=== PATIENT | male | born 1985 | race African-American/Black ===

== ENCOUNTER 2017-11-11 13:55 | Emergency (ER) | payer OTHER ==
[~2017-11-11] VITALS: Ht 175.3 cm; Wt 81.6 kg
[2017-11-11 15:35] LABS: *BILIRUBIN,URIN NEGATIVE (NEGATIVE); *BLOOD, URINE NEGATIVE (NEGATIVE); *CLARITY,URINE CLEAR (CLEAR); *COLOR,URINE YELLOW (YELLOW); *KETONES,URINE NEGATIVE (NEGATIVE); *PROTEIN,URINE TRACE (NEGATIVE); *UROBILINOGEN,URINE 0.2 E.U./dl (NORMAL); LEUKOCYTE ESTERASE ,URINE NEGATIVE (NEGATIVE); NITRITE, URINE NEGATIVE (NEGATIVE); PH,URINE 7.5 (5.0-8.0); UGLUCOSE NEGATIVE (NEGATIVE)
[2017-11-11 15:41] LABS: MUCUS,URINE MODERATE /LPF (0-FEW); WBC,URINE 0-3 /HPF (0-3)
--- NOTE | 2017-11-11 16:51 | NUR ---
DR GALVAN AT THE BEDSIDE FOR MSE.
[2017-11-11] MEDS ORDERED: CEFTRIAXONE 500 MG VIAL IM ONE (17:00)
[2017-11-11] MEDS ORDERED: DOXYCYCLINE HYCLATE 100 MG TABLET PO ONE (17:00)
[2017-11-11] MEDS ORDERED: LIDOCAINE HCL 1% 20 ML VIAL ONE (17:09)
[2017-11-11] MEDS ORDERED: DOXYCYCLINE HYCLATE 100 MG TABLET ONE (17:09)
[2017-11-11] MEDS ORDERED: CEFTRIAXONE 1 G VIAL ONE (17:09)
--- NOTE | 2017-11-11 17:24 | NUR ---
Patient discharged to home in stable conditon. Written and verbal after care instructions given. Patient verbalizes understanding of instructions.
[2017-11-11 17:25] VITALS: BP 134/78
[2017-11-13 07:06] LABS: *GC NAA Negative (Negative)
[2017-11-14 13:06] LABS: *TRIC.VAG. NAA Negative (Negative)
== END 2017-11-11 17:26 | disposition home or self-care (01) ==
LOC: ER 13:55
DX: N34.2 Other urethritis (principal)
CPT/HCPCS: 87491; A4663; J0696; J3490